=== PATIENT | male | born 1960 | race Caucasian/White ===

== ENCOUNTER → 2021-02-12 | Outpatient (CLI) | payer OTHER ==
--- NOTE | 2021-02-12 11:39 | KCIC ---
STUDY: MRI of the left shoulder without contrast INDICATION: Left shoulder pain and limited range of motion despite a history of rotator cuff repair. COMPARISON: No previous MRI. TECHNIQUE: Multiplanar MR imaging of the left shoulder performed without the use of intravenous or in tra-articular contrast. FINDINGS: The study is limited secondary to patient motion despite repeat sequence acquisition. AC joint: Manifestations of subacromial decompression. Fluid distends the subacromial subdeltoid burs a and insinuates between the distal clavicle and acromion. Rotator cuff: Humeral head suture anchors relating to prior rotator cuff repair. Recurrent full-thick ness, fullwidth tear of the supraspinatus. Full-thickness tear of much of the infraspinatus with only far posterior fibers remaining attached to the greater tuberosity. Torn tendon is retracted medial t o the glenoid. The teres minor is intact. High-grade partial-thickness tear of the subscapularis. Mod erate atrophy/fatty infiltration of the infraspinatus more so than supraspinatus. Mild supraspinatus and infraspinatus muscular edema. Mild/moderate fatty infiltration of the subscapularis. Teres minor bulk is maintained. Labrum: Chronic tearing best seen from superior to mid posterior. Long head biceps tendon: Either fully torn and scarred down within the bicipital groove or surgically released/anchored. Cartilage: Limited evaluation secondary to motion. Bones: No acute fracture or focally aggressive marrow signal abnormality. Glenoid and humeral head de generative changes are relatively mild include small osteophyte formation. Miscellaneous: Small joint effusion with mild synovitis. Morphologically benign axillary lymph nodes. Impression: 1. Limited study secondary to motion. 2. In the setting of previous rotator cuff repair there is recurrent full-thickness, fullwidth teari ng of the supraspinatus as well as full-thickness tearing of the majority of the infraspinatus. Torn tendon is retracted medial to the glenoid. Moderate atrophy/fatty infiltration of the supraspinatus a nd infraspinatus and mild/moderate of the subscapularis. Supraspinatus and infraspinatus muscular viji ma typical of subacute denervation. High-grade partial tear of the subscapularis. 3. Either biceps tenodesis or complete tear and scarred down within the bicipital groove. Correlate with surgical history. 4. 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 5. 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 Incomplete evaluation of the cartilage secondary to motion. 6. Small joint effusion with mild synovitis. Fluid distends the subacromial subdeltoid bursal region and insinuates between the distal clavicle and acromion. Presumably there has been subacromial decom pression. Electronically signed by: SOPHY KEENAN MD (02/12/2021 11:37 AM) [id number]
== END ==
LOC: KCIC MRI 08:40
PROVIDERS: ATTEND Orthopaedic Surgery
DX: M75.122 Complete rotator cuff tear or rupture of left shoulder, not specified as traumatic (principal); M19.012 Primary osteoarthritis, left shoulder; M25.412 Effusion, left shoulder; M25.712 Osteophyte, left shoulder; M65.812 Other synovitis and tenosynovitis, left shoulder; Z98.890 Other specified postprocedural states
CPT/HCPCS: 73221